=== PATIENT | male | born 1940 | race Hispanic/Latino ===

== ENCOUNTER 2024-06-16 11:58 | Emergency (ER) | payer MEDICARE ==
[~2024-06-16] VITALS: Ht 177.8 cm; Wt 84.8 kg
[2024-06-16 12:33] LABS: BASOPHILS # (AUTO) 0.04 K/uL (0.00-0.20); BASOPHILS % (AUTO) 0.6 % (0.0-5.0); EOSINOPHILS # (AUTO) 0.54 K/uL (0.00-0.70); EOSINOPHILS % (AUTO) 7.5 % (0.0-8.0); HEMATOCRIT 47.9 % (42-54); IMMATURE GRANULOCYTE ABSOLUTE 0.02 K/uL (0-1); LYMPHOCYTES # (AUTO) 2.2 K/uL (1.0-4.8); LYMPHOCYTES % (AUTO) 30.9 % (21.0-51.0); MEAN CORPUSCULAR HGB CONC 34.2 g/dL (32.0-36.0); MEAN CORPUSCULAR VOLUME 93.4 fL (79-99); MONOCYTES # (AUTO) 0.7 K/uL (0.1-1.0); MONOCYTES % (AUTO) 9.3 % (3.0-13.0); NEUTROPHILS # (AUTO) 3.7 K/uL (1.8-7.7); NEUTROPHILS % (AUTO) 51.4 % (40.0-77.0); PLATELET COUNT (AUTO) 167 K/uL (130-400); RED BLOOD CELL COUNT(AUTO) 5.13 MIL/uL (4.50-6.20); RED CELL DISTRIBUTION WIDTH 13.9 % (11.0-15.5); WHITE BLOOD COUNT (AUTO) 7.2 K/uL (4.8-10.8)
[2024-06-16 12:44] LABS: CREATININE 1.2 mg/dL (0.5-1.3)
[2024-06-16 12:48] LABS: ALBUMIN 3.8 g/dL (3.5-5.0); BILIRUBIN,TOTAL 0.6 mg/dL (0.2-1.0); TOTAL PROTEIN, SERUM 7.9 g/dL (6.0-8.3)
[2024-06-16] MEDS ORDERED: IOHEXOL 350 MG/ML 100ML INFUS..BTL IV ONE (14:57)
[2024-06-16] MEDS: ONDANSETRON 4MG INJ IVP ONE (15:03)
[2024-06-16] MEDS: 0.9%NACL 1000ML 1,000 ML IV ONE (15:04)
[2024-06-16] MEDS: KETOROLAC 15MG/ML VIAL (15MG/ML) IV ONE (15:04)
[2024-06-16] MEDS ORDERED: KETO10TA2 PO (16:43)
[2024-06-16 17:36] VITALS: BP 115/68; PULSE 76; RESP 16; O2SAT 97
== END 2024-06-16 17:36 | disposition home or self-care (01) ==
LOC: EDH 11:58 → EEVIPCON 11:58 → EDH 17:36
DX: K57.90 Diverticulosis of intestine, part unspecified, without perforation or abscess without bleeding (principal); K80.20 Calculus of gallbladder without cholecystitis without obstruction; E03.9 Hypothyroidism, unspecified; Z98.890 Other specified postprocedural states; Z88.8 Allergy status to other drugs, medicaments and biological substances
CPT/HCPCS: 99285; 74177; 96374; 96361; 96375; 80053; 83690; 85025; 36415; J7030; J2405; J1885; Q9967

== ENCOUNTER 2025-06-30 10:52 | Emergency (ER) | payer OTHER ==
[~2025-06-30] VITALS: Ht 177.8 cm; Wt 90.3 kg
[~2025-06-30 10:52] MED LIST: KETO10TA2 PO
--- NOTE | 2025-06-30 11:13 | EKG ---
[facility] Test Date: 2025-06-30 Test Time: 11:06:44 Pat Name: AGUSTÍN HUFF Department: [facility] Room: Gender: M Magazine Keeper: [id number] : 1940 Requested By: ADELAIDE CHRISTINE Order Number: [id number] Reading MD: Nimesh Cason Measurements Intervals [place] Rate: 73 P: 58 NM: 180 QRS: -45 QRSD: 123 T: 30 QT: 372 QTc: 412 Interpretive Statements Sinus rhythm RBBB and LAFB Consider anteroseptal infarct No previous ECG available for comparison Electronically Signed On 06-30-2025 15:38:37 CDT by Nimesh Cason Please click the below link to view image of tracing.
--- NOTE | 2025-06-30 11:20 | ERN ---
ED Note History of Present Illness Stated Complaint: RUQ PAIN Chief Complaint: Abdominal Pain Time Seen by MD: 10:59 Time Seen by Midlevel: 10:59 Dictation: 84-year-old male who presents to the ED for evaluation of chronic right upper quadrant abdominal pain, nausea. Reports he had a US done a month ago that showed possible acute cholecystitis. Results given today at [facility] and recommended come into the ER. Patient reports he has also been seeing GI specialist for the same issues. Reports he has a history of prostate cancer with removal done approximately a year ago. Not on chemo and being followed by oncologist. Allergies: Coded Allergies: Quinolones (Unverified Allergy, Unknown, 06/16/24) codeine (Unverified Allergy, Unknown, 06/16/24) latex (Unverified Allergy, Unknown, 06/16/24) Home Meds Active Scripts Ondansetron (Ondansetron Odt) 4 Mg Tab.rapdis, 1 TAB PO Q6HPRN PRN for nausea/vomiting for 4 Days, #16 TAB 0 Refills Prov:ADELAIDE CHRISTINE 06/30/25 Dicyclomine HCl (Bentyl) 20 Mg Tab, 1 TAB PO BID for irritable bowel symptoms for 30 Days, #60 TAB 0 Refills Prov:ADELAIDE CHRISTINE 06/30/25 Ketorolac Tromethamine (Ketorolac Tromethamine) 10 Mg Tablet, 10 MG PO Q6HPRN PRN for MODERATE PAIN, #30 TAB Prov:SEBLE LINDSEY [employer]OTE MORTGAGE UNDERWRITER 06/17/24 Ketorolac Tromethamine (Ketorolac Tromethamine) 10 Mg Tablet, 10 MG PO Q6HPRN PRN for Moderate pain, #30 TAB Prov:SEBLE LINDSEY [employer] M[employer]GAGE UNDERWRITER 06/16/24 Past Medical History Past Medical History: HIV, Hypothyroid Additional Past Medical Hx: HX OF PROSTATE CA Surgical History: Tonsillectomy, Other Surgical History Other: BACK SURGERY, PROSTECTOMY, RN Note Reviewed/Agreed w/PFSH: Yes Review of System Dictation Constitutional: Negative for fever,chills, and weight loss Eyes: Negative for injury, pain,redness, and discharge ENT: Negative for injury,pain or swelling Cardiovascular: Negative for chest pain, palpitations, and edema Respiratory: Negative for shortness of breath, cough, and wheezing, Abdomen/GI: Negative for diarrhea, and constipation Back: Negative for injury and pain : Negative for injury, bleeding and discharge MS/Extremity: Negative for injury and deformity Skin: Negative for rash, and discoloration Neuro: Negative for headache, weakness, numbness, tingling, and seizure Psych: Negative for suicide ideation, homicidal ideation, and hallucinations Review of Systems: was completed Initial Vital Sign VS Vital Signs Date Time Temp Pulse Resp B/P (MAP) Pulse Ox O2 Delivery O2 Flow Rate FiO2 06/30/25 10:53 97.9 73 16 124/65 100 Room Air 0 06/30/25 11:17 21 Physical Exam Dictation General: awake, alert, NAD Head/Face: Normocephalic, atraumatic Eyes: PERRL, EOMI, vision at baseline ENT: oral cavity clear, TMs clear, no signs of infection Neck: Trachea midline, supple, no nuchal rigidity Cardiovascular: RRR, normal S1/S2, No MRGs, no JVD Respiratory: CTAB, no respiratory distress, No rales or wheezes Abdomen: Soft, RUQ tenderness. non-distended, normal bowel sounds, no guarding or rebound. Skin: Warm, dry, normal turgor, no rash MS/Extremity: Pulses equal, no cyanosis, neurovascular intact, FROM Neuro: COAx4, GCS 15, strength 5/5, CN 2-12 intact, normal cerebellar exam, normal gait, Psych: Normal behavior, mood, and affect normal Results (Laboratory/Radiology) Laboratory/Radiology Laboratory Tests Test 06/30/25 11:14 White Blood Count 5.7 K/uL (4.8-10.8) Red Blood Count 4.25 MIL/uL (4.50-6.20) L Hemoglobin 13.7 g/dL (14.0-18.0) L Hematocrit 40.8 % (42-54) L Mean Corpuscular Volume 96.0 fL (79-99) Mean Corpuscular Hemoglobin 32.2 pg (27.0-33.0) Mean Corpuscular Hemoglobin Concent 33.6 g/dL (32.0-36.0) Red Cell Distribution Width 15.9 % (11.0-15.5) H Platelet Count 165 K/uL (130-400) Mean Platelet Volume 9.8 fL (7.5-10.5) Immature Granulocyte % (Auto) 0.2 % (0-1) Neutrophils (%) (Auto) 57.8 % (40.0-77.0) Lymphocytes (%) (Auto) 20.2 % (21.0-51.0) L Monocytes (%) (Auto) 8.6 % (3.0-13.0) Eosinophils (%) (Auto) 12.5 % (0.0-8.0) H Basophils (%) (Auto) 0.7 % (0.0-5.0) Neutrophils # (Auto) 3.3 K/uL (1.8-7.7) Lymphocytes # (Auto) 1.2 K/uL (1.0-4.8) Monocytes # (Auto) 0.5 K/uL (0.1-1.0) Eosinophils # (Auto) 0.71 K/uL (0.00-0.70) H Basophils # (Auto) 0.04 K/uL (0.00-0.20) Absolute Immature Granulocyte (auto 0.01 K/uL (0-1) Nucleated Red Blood Cells 0.0 % (0.0-0.19) Sodium Level 138 mmol/L (136-145) Potassium Level 4.5 mmol/L (3.5-5.1) Chloride Level 102 mmol/L (101-111) Carbon Dioxide Level 31 mmol/L (21-32) Blood Urea Nitrogen 14 mg/dL (7-18) Creatinine 1.0 mg/dL (0.5-1.3) Glomerular Filtration Rate Calc 74 mL/min (>90) Random Glucose 91 mg/dL (70-105) Total Calcium 9.3 mg/dL (8.5-10.1) Total Bilirubin 0.7 mg/dL (0.2-1.0) Aspartate Amino Transf (AST/SGOT) 25 U/L (10-37) Alanine Aminotransferase (ALT/SGPT) 30 U/L (12-78) Alkaline Phosphatase 110 U/L (50-136) Troponin I High Sensitivity 8 ng/L (4-75) Total Protein 7.3 g/dL (6.0-8.3) Albumin 3.7 g/dL (3.5-5.0) Lipase 29 U/L (16-77) Labs Reviewed?: Yes EKG Comment: Date:06/30/2025 Time:1106 Ventricular rate:73 AR interval:180 QRS duration:123 QT/QTc: 372 EKG interpretation: Normal sinus rhythm, no STEMI. Reviewed by ED Attending ED Course ED Course Orders Procedure Category Date Status Time Cbc With Differential LAB 06/30/25 Complete 10:59 Comprehensive LAB 06/30/25 Complete Metabolic Panel 10:59 Troponin I High LAB 06/30/25 Complete Sensitivity 10:59 Urinalysis Profile LAB 06/30/25 Logged 10:59 Ct Abdomen/Pelvis CT 06/30/25 Resulted W/Contrast 10:59 Us Abdominal Ruq\Ltd US 06/30/25 Resulted 10:59 12 Lead Ekg Tracing- EKG 06/30/25 Complete Technical 10:59 0.9%Nacl 1000ml (Ns PHA 06/30/25 Complete 1000ml) 11:00 Lipase LAB 06/30/25 Complete 10:59 Morphine 4mg Syg PHA 06/30/25 Complete (Morphine 4mg Syg) 11:30 Ondansetron 4mg Inj PHA 06/30/25 Complete (Zofran 4mg Inj) 11:30 Dicyclomine Hcl PHA 06/30/25 Complete (Bentyl 20mg Inj) 11:30 Iohexol (Omnipaque) PHA 06/30/25 Complete 11:59 Current Medications Medications (Trade) Dose Ordered Sig/[place]ent[place] Route PRN Reason Start Time Stop Time Status Last Admin Dose Admin Dicyclomine HCl (Bentyl 20mg Inj) 20 mg ONCE ONCE IM 06/30/25 11:30 06/30/25 11:31 DC 06/30/25 13:02 Iohexol (Omnipaque) 75 ml STK-MED ONCE IV 06/30/25 11:59 06/30/25 12:00 DC Morphine Sulfate (morPHINE 4MG SYG) 4 mg ONCE ONCE IVP 06/30/25 11:30 06/30/25 11:31 DC 06/30/25 12:04 Ondansetron HCl (zoFRAN 4MG INJ) 4 mg ONCE ONCE IVP 06/30/25 11:30 06/30/25 11:31 DC 06/30/25 13:02 Sodium Chloride 1,000 ml @ 0 mls/hr ONCE ONCE IV 06/30/25 11:00 06/30/25 11:02 DC 06/30/25 12:05 Vital Signs Date Time Temp Pulse Resp B/P (MAP) Pulse Ox O2 Delivery O2 Flow Rate FiO2 06/30/25 14:57 98.1 69 20 129/67 100 Room Air* 0 06/30/25 13:55 66 18 121/65 97 Room Air* 0 06/30/25 12:30 74 20 118/79 100 Room Air* 0 21 06/30/25 11:17 69 20 136/75 97 Room Air* 0 06/30/25 10:53 97.9 73 16 124/65 100 Room Air 0 1420 Reevaluation patient feeling better Medical Decision Making MDM MDM: Differential diagnosis: Cholelithiasis, cholecystitis, pancreatitis, gastroenteritis, diverticulosis, diverticulitis Need for hospitalization: Patient does meet criteria for hospitalization. Need for emergency major/minor surgery: No I independently interpreted the test that were performed, results were reviewed by me and considered findings on radiology if ordered. Medical management and examination interpretation discussions were had by me with other qualified healthcare professionals as indicated for the patient's care. Patient presenting with chronic right upper quadrant abdominal pain. Was sent here by PCP due to them getting results of the ultrasound that was done a month ago with a showed potential cholecystitis. Today on examination patient does have some right upper quadrant tenderness. Negative Gonzalez's sign. Afebrile, nonseptic appearing. No rebound, guarding, rigidity. No leukocytosis. Normal LFTs. Lipase within normal limits most likely ruling out pancreatitis. Negative troponin. Ultrasound of the right upper quadrant was ordered that did show multiple gallstones with no wall thickening or pericholecystic fluid to suggest acute cholecystitis. CT scan was also ordered that showed gallbladder distended with gallstones but no ductal dilation. No acute intra-abdominal or pelvic pathology. Colonic diverticulosis without diverticulitis. Upon reexamination patient reports feeling better. Patient p.o. tolerant. Patient will be given referral to outpatient general surgeon for potential evaluation of early cholecystectomy or other options. Return precautions discussed with patient. Patient verbalized understanding, agreed with the plan, and all questions were answered at this time. DX & DISP Disposition: Discharge Departure Impression: Primary Impression: Cholelithiasis Additional Impression: Diverticulosis Condition: Stable Scripts Ondansetron (Ondansetron Odt) 4 Mg Tab.rapdis 1 TAB PO Q6HPRN PRN for nausea/vomiting for 4 Days, #16 TAB 0 Refills Prov: ADELAIDE CHRISTINE 06/30/25 Dicyclomine HCl (Bentyl) 20 Mg Tab 1 TAB PO BID for irritable bowel symptoms for 30 Days, #60 TAB 0 Refills Prov: ADELAIDE CHRISTINE 06/30/25 Additional Instructions: DISCHARGE HOME. REST. FOLLOW UP WITH PRIMARY CARE DRDevan IN 24 HOURS AND GENERAL SURGERY RETURN TO THE ER FOR ANY ACUTE CHANGE. PATIENT WAS ALSO ADVISED TO FOLLOW-UP WITH PRIMARY CARE PHYSICIAN IN 1 TO 2 DAYS FOR CONTINUED MONITORING. ALL INSTRUCTIONS WERE GIVEN TO LAYMANS TERM AND PATIENT AGREEABLE TO DISCHARGE AND PROPER FOLLOW-UP. Referrals: KIMBERLY YANES MD (PCP) ABDIRASHID CHEN MD I have reviewed the case, and I agree with, Diagnosis and Plan ADELAIDE CHRISTINE Jun 30, 2025 11:20
[2025-06-30 11:21] LABS: IMMATURE GRANULOCYTE ABSOLUTE 0.01 K/uL (0-1); NUCLEATED RED BLOOD CELLS 0.0 % (0.0-0.19); PLATELET COUNT (AUTO) 165 K/uL (130-400); RED BLOOD CELL COUNT(AUTO) 4.25 MIL/uL (4.50-6.20); RED CELL DISTRIBUTION WIDTH 15.9 % (11.0-15.5); WHITE BLOOD COUNT (AUTO) 5.7 K/uL (4.8-10.8)
[2025-06-30 11:35] LABS: CREATININE 1.0 mg/dL (0.5-1.3); GLOMERULAR FILTR. RATE CALC 74.0 mL/min (>90); GLUCOSE,RANDOM 91.0 mg/dL (70-105); SODIUM SERUM 138.0 mmol/L (136-145); UREA NITROGEN, BLOOD 14.0 mg/dL (7-18)
[2025-06-30 11:39] LABS: ASPARTATE AMINOTRANSFERASE 25.0 U/L (10-37); TOTAL PROTEIN, SERUM 7.3 g/dL (6.0-8.3)
[2025-06-30] MEDS ORDERED: IOHEXOL-350 75 ML VIAL IV ONE (11:59)
[2025-06-30] MEDS: 0.9%NACL 1000ML 1,000 ML IV ONE (12:05)
[2025-06-30] MEDS: DICYCLOMINE 20MG (10MG/ML) AMP IM ONE (13:02)
--- NOTE | 2025-06-30 13:07 | HMCIMG ---
EXAM: US Abdomen, Right Upper Quadrant. CLINICAL HISTORY: Adominal Pain TECHNIQUE: Right upper quadrant sonography performed with image documentation. COMPARISON: None. FINDINGS: LIVER: Liver enlarged in size, measuring approximately 15.9 cm. Increased echogenicity of the hepatic parenchyma reflect hepatic steatosis. Portal vein flow hepatopetal with peak systolic velocity 17.7 cm/sec GALLBLADDER: The gallbladder is distended with multiple calculi, the largest calculus measuring approximately 1.7 x 0.8 cm. Gallbladder wall thickness measures approximately 3 mm. Polyp in the gallbladder measuring approximately 3.7 x 3.4 mm COMMON BILE DUCT: No dilation. PANCREAS: The visualized pancreas appears within normal limits. The distal pancreas is obscured by bowel gas. RIGHT KIDNEY: Unremarkable. Normal renal contours. No renal mass or calculus. No hydronephrosis. IMPRESSION: 1. Mild hepatomegaly with liver span of 16.0 cm. Hepatic steatosis. 2. Multiple gallstones, largest measuring 1.7 x 0.8 cm, and a small gallbladder polyp. No wall thickening or pericholecystic free fluid seen to suggest acute cholecystitis. /[place]
--- NOTE | 2025-06-30 13:35 | NUR ---
[facility] ([facility]STER) [phone]..
--- NOTE | 2025-06-30 13:41 | HMCIMG ---
EXAM: CT Abdomen and Pelvis with IV contrast CLINICAL HISTORY: Abdominal Pain TECHNIQUE: Axial computed tomography images of the abdomen and pelvis with intravenous contrast. CONTRAST: with intravenous contrast. COMPARISON: Study dated 06/16/24. FINDINGS: LUNG BASES: Dependent airway disease along bilateral lower lobes, presumed to represent basal atelectasis. No pleural effusions are seen. LIVER: Focal hypodense area in the right lobe of the liver. This is unchanged from the comparison exam, and considerations include a cyst or hemangioma. GALLBLADDER AND BILE DUCTS: The gallbladder is distended with hyperdense calculus measuring 2.2 x 2.1 cm. No gallbladder wall thickening or pericholecystic free fluid. No biliary ductal dilatation is evident. PANCREAS: Unremarkable. SPLEEN: Unremarkable. ADRENAL GLANDS: Unremarkable. KIDNEYS, URETERS, AND BLADDER: Tiny 2.0 mm non-obstructive renal calculus in the lower calyx of the left kidney. Simple renal cyst measuring 1.0 cm in the left kidney. There is no hydronephrosis or hydroureter. Cystocele. STOMACH AND BOWEL: Colonic diverticulosis without diverticulitis. Unremarkable appearance of the stomach and small bowel. No evidence of bowel obstruction. No evidence suggesting enteritis or colitis. APPENDIX: No evidence of acute appendicitis on CT examination. PERITONEUM: No free fluid. No free air. LYMPH NODES: No lymphadenopathy is evident. REPRODUCTIVE: The prostate is surgically absent. VASCULATURE: Atherosclerotic changes in the form of eccentric vessel wall calcification in the abdominal aorta and its major branches. No evidence of abdominal aortic aneurysm. BONES: Degenerative changes in the visualised spine in the form of marginal osteophytes and degenerative discs at multiple lumbar levels. Pedicle screws at L3, L4, and L5 vertebral levels. Scoliosis with convexity towards the left side. No aggressive appearing osseous lesion. No acute osseous pathology is evident. IMPRESSION: 1. No acute intraabdominal or pelvic pathology. 2. 2.[address] evidence for cholecystitis. 3. Colonic diverticulosis without diverticulitis. /[place]
[2025-06-30] MEDS ORDERED: ONDA-243 PO (14:29)
[2025-06-30] MEDS ORDERED: DICY20TA2 PO (14:29)
[2025-06-30 14:57] VITALS: BP 129/67; PULSE 69; RESP 20; TEMP 98; O2SAT 100
--- NOTE | 2025-06-30 14:59 | NUR ---
PT WHEELED TO MAIN LOBBY. PT STATED HE WISHED TO STOP AT MEDICAL RECORDS BEFORE DEPARTING HOME.
== END 2025-06-30 14:30 | disposition home or self-care (01) ==
LOC: EDH 10:52
DX: K80.20 Calculus of gallbladder without cholecystitis without obstruction (principal); K57.30 Diverticulosis of large intestine without perforation or abscess without bleeding; E03.9 Hypothyroidism, unspecified; Z90.89 Acquired absence of other organs; Z88.5 Allergy status to narcotic agent
CPT/HCPCS: 99285; 74177; 96374; 76705; 96361; 96375; 84484; 80053; 83690; 85025; 36415; 96372; 93005; J7030; J2405; J2270; J0500; Q9967

== ENCOUNTER 2025-08-12 10:15 | Observation (INO) | payer OTHER ==
[2025-08-10 13:25] LABS: IMMATURE GRANULOCYTE ABSOLUTE 0.01 K/uL (0-1); NUCLEATED RED BLOOD CELLS 0.0 % (0.0-0.19); PLATELET COUNT (AUTO) 159 K/uL (130-400); RED BLOOD CELL COUNT(AUTO) 4.88 MIL/uL (4.50-6.20); RED CELL DISTRIBUTION WIDTH 14.8 % (11.0-15.5); WHITE BLOOD COUNT (AUTO) 5.2 K/uL (4.8-10.8)
[2025-08-10 13:32] VITALS: BP 164/82; PULSE 95; RESP 17; TEMP 98.6
[2025-08-10 13:33] LABS: CREATININE 1.0 mg/dL (0.5-1.3); GLOMERULAR FILTR. RATE CALC 74.0 mL/min (>90); GLUCOSE,RANDOM 102.0 mg/dL (70-105); SODIUM SERUM 139.0 mmol/L (136-145); UREA NITROGEN, BLOOD 17.0 mg/dL (7-18)
[2025-08-10 13:34] LABS: INR 1.08 (0.85-1.15)
--- NOTE | 2025-08-10 13:38 | EKG ---
[facility] Test Date: 2025-08-10 Test Time: 13:09:40 Pat Name: AGUSTÍN BERNARD Department: [facility] Room: 419 Gender: M Equity Structurer: [id number] : 1940 Requested By: NAVA BERNARD Order Number: [id number] Reading MD: Pipo Neil Measurements Intervals [place] Rate: 95 P: 49 GA: 197 QRS: -55 QRSD: 122 T: 57 QT: 351 QTc: 442 Interpretive Statements Sinus rhythm RBBB and LAFB Consider anterolateral infarct ST elevation, consider inferior injury Compared to ECG 06/30/2025 11:06:44 ST (T wave) deviation now present Myocardial infarct finding still present Electronically Signed On 08-13-2025 19:47:47 CDT by Pipo Neil Please click the below link to view image of tracing.
--- NOTE | 2025-08-11 10:11 | NUR ---
RE: EKG REPORTED EKG RESULTS TO DR ESTRELLA, NO NEW ORDERS RECEIVED. (CARDIAC CLEARANCE IN CHART)
[2025-08-12] VITALS (26 sets, daily range): BP systolic 118–142; BP diastolic 59–79; PULSE 72–89; RESP 15–21; TEMP 97.3–98.4; O2SAT 98–99
[~2025-08-12] VITALS: Ht 177.8 cm; Wt 91.7 kg
[~2025-08-12 10:15] MED LIST changes: +ATOR40TA69 PO; +BICT1TAB3 PO; +BUPR150F3 BC; +DICY20TA2 PO; +EZET10TA80 PO; +IBUP-2077 PO; -KETO10TA2 PO; +LEVO75TA4 PO; +METF-444 PO
[2025-08-12] MEDS: 0.9%NACL 1000ML 1,000 ML IV ONE (10:31)
[2025-08-12] MEDS ORDERED: LIDOCAINE PF 100MG/5ML (2%) SYRINGE 5ML ONE (11:21)
[2025-08-12] MEDS ORDERED: SUCCINYLCHOLINE CHLORIDE 20 MG/ML 10 ML VIAL ONE (11:22)
[2025-08-12] MEDS ORDERED: MIDAZOLAM HCL 1 MG/ML 2ML VIAL ONE (11:22)
[2025-08-12] MEDS: INDOCYANINE GREEN 25 MG VIAL IJ ONE ×2 (11:34→11:40)
[2025-08-12] MEDS ORDERED: PROCHLORPERAZINE 10MG/2ML INJ IV PRN (13:30)
[2025-08-12] MEDS ORDERED: HYDROcod/acetaMINOPHEN 7.5/325 MG 15 ML UDCUP PO PRN (13:30)
--- NOTE | 2025-08-12 13:41 | OP ---
Operative Note: DATE OF PROCEDURE: 08/12/25 SURGEON: NAVA BERNARD MD MAINTENANCE WORKER: [Please review operative record] ANESTHESIA: [General and local] ANESTHESIOLOGIST/CORN CROP SUPERVISOR: [Please review operative record] PREOPERATIVE DIAGNOSIS: [Chronic cholecystitis, symptomatic cholelithiasis] POSTOPERATIVE DIAGNOSIS: [Same] SYNOPSIS: [Chronically inflamed gallbladder. Ic green cholangiography showing no ductal filling defects, appropriate identification of cystic duct.] PROCEDURE: [Robotic assisted laparoscopic cholecystectomy. ICG green cholangiography] ESTIMATED BLOOD LOSS: [20 cc] INDICATIONS: [Patient is a 84-year-old male with chronic right upper quadrant pain who was found to have cholelithiasis and gallbladder changes concerning for chronic cholecystitis. Patient failed conservative management with dietary changes in medication. Recommendation was given for surgical removal of the gallbladder. All questions were answered. Risks, benefits, alternatives were discussed with the patient. Patient agreed proceed with surgical plan.] DESCRIPTION OF PROCEDURE: [After appropriate consent was obtained, the patient was brought into the operating room and placed in supine position on the operating table. SCDs were placed, preop antibiotics were given. Patient underwent induction of general anesthesia, endotracheal intubation. Patient was then prepped and draped in usual sterile fashion. Time-out was performed. Through a left subcostal incision, Veress needle was inserted into the peritoneal cavity. Insufflation was allowed to 12 mmHg. Through a supraumbilical incision, 8 mm trocar and laparoscope were inserted into the peritoneal cavity using WHATTview. Veress needle and this vicinity were examined with no signs of injury. Rest of my trocars were all placed under direct visualization. Patient was positioned on a reverse Trendelenburg at 20. The Jeanine robot was docked. Upon examination of the gallbladder, it appeared enlarged. A few omental adhesions were taken down using hook electrocautery. The liver and gallbladder were retracted cephalad exposing area for Calot's triangle dissection. Using hook electrocautery, dissection was accomplished. IC green cholangiography showed proper identification of the cystic duct, visualization of hepatic and common bile duct. Cystic artery was also isolated. Cystic artery was clipped once and cauterized and sharply divided. Cystic duct was clipped 3 times with two of these clips staying behind after sharp division. Gallbladder was removed from the gallbladder fossa using bipolar energy. Hemostasis was achieved with bipolar energy as well. Once removed from the gallbladder fossa, gallbladder was placed in an Endo-Catch bag. Margieinci robot was undocked at this time. Gallbladder was removed from the peritoneal cavity with a bag through an 8 mm trocar site. The fascia of the site was closed with 0 Vicryl suture through a suture Passer. Final inspection revealed adequate hemostasis, no concerns for leakage. Counts were correct at the end of the case. All instruments were removed. Abdomen was allowed to deflate. Skin incisions were closed with 4-0 Monocryl. Dermabond was applied over the incisions. Patient tolerated the procedure well. Was transferred to recovery in a good condition] NAVA BERNARD MD Aug 12, 2025 13:41
[2025-08-12] MEDS ORDERED: DICYCLOMINE HCL 20 MG TAB PO PRN (14:00)
[2025-08-12] MEDS: EZETIMIBE 10 MG TAB PO SCH (20:25)
[2025-08-12] MEDS: [UNRECOGNIZED DRUG - OTHER] PO SCH (20:26)
[2025-08-12] MEDS: ENOXAPARIN SODIUM 30 MG/0.3 ML SQ SCH (20:26)
[2025-08-12] MEDS: BUPRENORPHINE HCL 150 MCG SL SCH (20:26)
[2025-08-13 04:00] VITALS: BP 115/70; PULSE 90; RESP 18; TEMP 97.7
[2025-08-13 08:00] VITALS: BP 105/62; PULSE 86; RESP 18; TEMP 97.6; O2SAT 100
--- NOTE | 2025-08-13 08:41 | NUR ---
DCP: HOME Sw met with pt who is a [place] and seen by Lilly Taylor for medical care and meds. Pt states he lives independently at his home alone. Pt states he is able to complete his ADLS, home management and meal prep on his own. Pt drives and reports he remains active. No HH or HD services. pt states he will dc home and feels he will be just fine on his own. BROTHER BRIEN BERNARD [phone] is aware of admission and will f/u with pt at home Addendum: 08/13/25 at 0851 by THEO MALDONADO Amended: Links added.
[2025-08-13 12:02] VITALS: BP 112/61; PULSE 77; RESP 18; TEMP 97.7
--- NOTE | 2025-08-13 13:52 | NUR ---
PATIENT DISCHARGE PATIENT DISCHARGED TO HOME. PERIPHERAL IV REMOVED, CATHETER INTACT. DISCHARGE INSTRUCTIONS GIVEN. PATIENT AWARE TO F/U WITH DR. BERNARD. APPT ALREADY SCHEDULED. PRESCRIPTIONS FAXED TO PHARMACY. ALL QUESTIONS QUESTIONS. PATIENT TAKEN DOWN BY WHEELCHAIR. ALL BELONGINGS SENT WITH PATIENT.
== END 2025-08-13 13:30 | disposition home or self-care (01) ==
LOC: SUH 10:15 → DAH 10:15 → SUH 10:16 → DAHIP 10:16 → 4CH 14:30
PROVIDERS: ADMIT Surgery; ATTEND Surgery
DX: K80.12 Calculus of gallbladder with acute and chronic cholecystitis without obstruction (principal); I12.9 Hypertensive chronic kidney disease with stage 1 through stage 4 chronic kidney disease, or unspecified chronic kidney disease; E11.22 Type 2 diabetes mellitus with diabetic chronic kidney disease; N18.9 Chronic kidney disease, unspecified; E03.9 Hypothyroidism, unspecified; E78.5 Hyperlipidemia, unspecified; R93.2 Abnormal findings on diagnostic imaging of liver and biliary tract; Z79.899 Other long term (current) drug therapy; Z98.890 Other specified postprocedural states
CPT/HCPCS: 80048; 85025; 85610; 85730; 86850; 86900; 86901; 36415; 93005; 47563; 96374; 96372 ×2; 82948 ×6; 88304; 74300; 96376; A6260; G0378 ×24; A4663; J7030 ×2; A4215 ×2; J3010 ×3; J1100; J0330; J0665 ×2; J3490 ×3; J2003; J1650 ×2; J2250; J2704; J2405; J1885 ×2; J0690 ×2; A4930 ×2; A4223 ×2; A4213; A4222; A4221; A4216